=== PATIENT | male | born 1960 | race American Indian/Alaskan Native ===

== ENCOUNTER 2016-07-06 19:50 | Emergency (ER) | payer SELFPAY | END 2016-07-06 20:39 | disposition left against medical advice (07) | LOC: ED 19:50 | DX: M54.5 Low back pain (principal); M25.559 Pain in unspecified hip; Z53.21 Procedure and treatment not carried out due to patient leaving prior to being seen by health care provider ==

== ENCOUNTER 2017-03-24 11:03 | Emergency (ER) | payer SELFPAY ==
[2017-03-24] MEDS ORDERED: NACL 0.9% 1000 ML 1,000 ML IV ONE (11:35)
[2017-03-24] MEDS ORDERED: ZOFRAN IV ONE (11:35)
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
[2017-03-24 12:43] LABS: Hematocrit 42.8 % (35.5-45.6); Hemoglobin 13.8 gm/dl (11.8-15.2); Mean Corpuscular HGB Conc 32 % (32-34); Mean Corpuscular Hemoglobin 30 pg (28-32); Mean Corpuscular Volume 94 fl (84-94); Platelet Count 280 K/mm3 (140-440); Red Blood Count 4.55 M/mm3 (3.65-5.03); Red Cell Distribution Width 15.6 % (13.2-15.2); White Blood Count 8.7 K/mm3 (4.5-11.0)
[2017-03-24 13:03] LABS: Creatine Kinase 160 units/L (55-170)
[2017-03-24] MEDS: DILAUDID IV ONE ×2 (13:04→13:07)
[2017-03-24] MEDS ORDERED: DILAUDID IM ONE (13:08)
[2017-03-24 13:18] LABS: Creatine Kinase MB 3.2 ng/mL (0.0-4.0)
[2017-03-24 13:31] LABS: Alanine Aminotransferase 12 units/L (7-56); Albumin 3.6 g/dL (3.9-5); Albumin/Globulin Ratio 0.9 %; Alkaline Phosphatase 73 units/L (35-129); Anion Gap 21 mmol/L; BUN/Creatinine Ratio 11; Blood Urea Nitrogen 8 mg/dL (9-20); Calcium 9.2 mg/dL (8.4-10.2); Carbon Dioxide 18 mmol/L (22-30); Chloride 102.7 mmol/L (98-107); Glucose 97 mg/dL (75-100); Lipase 19 units/L (13-60); Potassium 4.3 mmol/L (3.6-5.0); Sodium 137 mmol/L (137-145); Total Protein 7.4 g/dL (6.3-8.2)
[2017-03-24 13:37] LABS: Bilirubin,Direct < 0.2 mg/dL (0-0.2); Bilirubin,Indirect 0.2 mg/dL
[2017-03-24 13:38] LABS: INR 1.27 (0.87-1.13)
[2017-03-24 13:39] LABS: Partial Thromboplastin Time 43.4 Sec. (24.2-36.6)
--- NOTE | 2017-03-24 14:17 | Cat Scan Report ---
CT CHEST WITHOUT CONTRAST: HISTORY: Chest pain, right costal pain. TECHNIQUE: Helical CT with sagittal and coronal reformatted images. FINDINGS: Heart size is normal. There is no evidence of adenopathy within the mediastinum. Pulmonary lulu are free of any mass and the lungs are clear of infiltrates. The pleura is unremarkable. No masses involve the chest wall. No evidence for thoracic fracture or bony lesion. IMPRESSION: Unremarkable noncontrast CT chest.
--- NOTE | 2017-03-24 14:19 | Cat Scan Report ---
CT OF THE ABDOMEN AND PELVIS WITHOUT CONTRAST HISTORY: Abdominal pain. TECHNIQUE: Helical CT without contrast. Sagittal and coronal reformatted images. FINDINGS: Within the limits of a noncontrast exam, the abdominal and pelvic viscera are within normal limits. The liver, biliary system, pancreas, spleen, kidneys, adrenal glands and bladder are unremarkable. The bowel loops are normal caliber and wall thickness. The appendix is not confidently identified. The aorta is normal caliber. No ascites, bulky adenopathy or inflammatory changes. A small supraumbilical ventral wall defect measuring 1 cm contains a small amount of fat. The lung bases are clear. Normal heart size. No suspicious bony lesion. IMPRESSION: No acute inflammatory process is identified in the abdomen or pelvis.
--- NOTE | 2017-03-24 14:31 | XRay Report ---
AP CHEST: History: Chest pain. AP view of the chest demonstrates a normal mediastinal and cardiac contour with clear lungs and normal bony and soft tissue structures. IMPRESSION: Normal AP chest.
[2017-03-24 14:48] VITALS: BP 115/77
== END 2017-03-24 14:50 | disposition home or self-care (01) ==
LOC: ED 11:03
DX: S20.212A Contusion of left front wall of thorax, initial encounter (principal); I10 Essential (primary) hypertension; E11.9 Type 2 diabetes mellitus without complications; F31.9 Bipolar disorder, unspecified; F20.9 Schizophrenia, unspecified; F17.200 Nicotine dependence, unspecified, uncomplicated; F14.10 Cocaine abuse, uncomplicated; Z90.49 Acquired absence of other specified parts of digestive tract; Z79.4 Long term (current) use of insulin; Y04.8XXA Assault by other bodily force, initial encounter; Y93.89 Activity, other specified; Y99.8 Other external cause status; Y92.89 Other specified places as the place of occurrence of the external cause
CPT/HCPCS: 36415; 71010; 71250; 74176; 80048; 80074; 82550; 82553; 83690; 83735; 83880; 84484; 85027; 85610; 85730; 86850; 86900; 86901; 93005; 93010; 96372; 99284; J1170

== ENCOUNTER 2019-09-01 18:27 | Emergency (ER) | payer SELFPAY ==
[2019-09-01 18:33] VITALS: BP 158/93
== END 2019-09-01 22:48 | disposition left against medical advice (07) ==
LOC: ED 18:27
DX: M79.604 Pain in right leg (principal); Z53.21 Procedure and treatment not carried out due to patient leaving prior to being seen by health care provider

== ENCOUNTER 2020-02-18 00:50 | Emergency (ER) | payer SELFPAY ==
[2020-02-18 02:07] LABS: Basophils # (Auto) 0.1 K/mm3 (0.0-0.1); Basophils % (Auto) 0.9 % (0.0-1.8); Eosinophils # (Auto) 0.1 K/mm3 (0.0-0.4); Hematocrit 39.9 % (35.5-45.6); Hemoglobin 13.5 gm/dl (11.8-15.2); Lymphocytes % (Auto) 28.2 % (13.4-35.0); Mean Corpuscular HGB Conc 34 % (32-34); Mean Corpuscular Volume 95 fl (84-94); Monocytes # (Auto) 0.7 K/mm3 (0.0-0.8); Monocytes % (Auto) 10.4 % (0.0-7.3); Platelet Count 243 K/mm3 (140-440); Red Blood Count 4.18 M/mm3 (3.65-5.03); Red Cell Distribution Width 13.3 % (13.2-15.2)
[2020-02-18 02:16] LABS: Bilirubin,Urine NEG (Negative); Blood,Urine NEG (Negative); Color,Urine Yellow (Yellow); Mucus,Urine FEW /HPF; RBC,Urine < 1.0 /HPF (0.0-6.0); WBC,Urine < 1.0 /HPF (0.0-6.0)
[2020-02-18 02:18] LABS: Amphetamine Screen,Urine PRESUMPTIVE NEGATIVE; Benzodiazepines Screen,Urine PRESUMPTIVE NEGATIVE; Cannabinoid Screen,Urine PRESUMPTIVE NEGATIVE; Cocaine Screen,Urine PRESUMPTIVE POSITIVE; Methadone Screen,Urine PRESUMPTIVE NEGATIVE; Opiate Screen,Urine PRESUMPTIVE NEGATIVE
[2020-02-18 02:22] LABS: Blood Urea Nitrogen 9 mg/dL (9-20); Calcium 9.2 mg/dL (8.4-10.2); Hemolysis Index 10
[2020-02-18 02:23] LABS: Protein,Urine >500 mg/dL (Negative)
[2020-02-18 02:23] LABS: BUN/Creatinine Ratio 13
[2020-02-18 02:34] LABS: Alanine Aminotransferase 22 units/L (7-56); Albumin 4.1 g/dL (3.9-5)
[2020-02-18 02:38] LABS: Bilirubin,Direct < 0.2 mg/dL (0-0.2)
--- NOTE | 2020-02-18 02:48 | Emergency Department Report ---
ED Psych HPI - General Chief Complaint: Psych Stated Complaint: MH EVAL/SUICIDAL Time Seen by Provider: 02/18/20 02:01 Source: patient Mode of arrival: Ambulatory - History of Present Illness Initial Comments: Mr. Koch is a 59-year-old male with history of hypertension, diabetes mellitus, schizoaffective, cocaine dependence who presents with suicide attempt. At 9:00 PM patient drank half a bottle of NyQuil in order to harm himself. He walked to the ED for care. He states, "I am just tired. I do not want to live anymore." Last use of cocaine one day ago. Denies fever, headache, chest pain. MD Complaint: suicidal ideation, feels depressed, other (intentional overdose) -: Sudden, This evening Associated Psychiatric Symptoms: depression, suicidal ideation Quality: constant Improves With: none Worsens With: drug use Context: recent drug abuse, not taking psychiatric Associated Symptoms: denies other symptoms If Self Harm: has acted on plan, intentional overdose - Related Data Home Medications Medication Instructions Recorded Confirmed Last Taken Lurasidone (Nf) [Latuda (Nf)] 80 mg PO QDAY 09/23/14 02/19/20 5 Months Ago ~12/05/15 lisinopriL [Lisinopril] 10 mg PO DAILY 11/08/14 02/19/20 5 Months Ago ~12/05/15 Metformin HCl [metFORMIN ER 500 mg PO BID 02/19/20 02/19/20 Unknown Osmotic] Previous Rx's Medication Instructions Recorded Last Taken Type Insulin Glargine [Lantus] 24 unit SUB-Q QHS #30 day 11/08/14 5 Months Ago Rx ~12/05/15 Insulin NPH/Regular [Novolin 70/30] 10 unit SQ BIDDIAB #30 day 11/08/14 5 Months Ago Rx ~12/05/15 Ibuprofen [Motrin 400 MG tab] 400 mg PO Q8H PRN #20 tablet 05/06/16 Unknown Rx traMADoL [Ultram] 50 mg PO Q6HR PRN #10 tablet 03/24/17 02/19/20 Rx Allergies Allergy/AdvReac Type Severity Reaction Status Date / Time No Known Allergies Allergy Verified 08/20/13 05:53 ED Review of Systems ROS: Stated complaint: MH EVAL/SUICIDAL Other details as noted in HPI Comment: All other systems reviewed and negative Constitutional: denies: fever, malaise Respiratory: denies: cough, shortness of breath Cardiovascular: denies: chest pain Psychiatric: depression ED Past Medical Hx - Past Medical History Previous Medical History?: Yes Hx Hypertension: Yes Hx Diabetes: Yes (noncomplaint w/ meds) Hx Psychiatric Treatment: Yes (depression, bipolar/schizophrenia) - Surgical History Past Surgical History?: Yes Hx Appendectomy: Yes Additional Surgical History: exp lap as a child - Social History Smoking Status: Current Every Day Smoker Substance Use Type: Alcohol, Cocaine, Marijuana - Medications Home Medications: Home Medications Medication Instructions Recorded Confirmed Last Taken Type Lurasidone (Nf) [Latuda (Nf)] 80 mg PO QDAY 09/23/14 02/19/20 5 Months Ago History ~12/05/15 Insulin Glargine [Lantus] 24 unit SUB-Q QHS #30 day 11/08/14 02/19/20 5 Months Ago Rx ~12/05/15 Insulin NPH/Regular [Novolin 70/30] 10 unit SQ BIDDIAB #30 day 11/08/14 02/19/20 5 Months Ago Rx ~12/05/15 lisinopriL [Lisinopril] 10 mg PO DAILY 11/08/14 02/19/20 5 Months Ago History ~12/05/15 Ibuprofen [Motrin 400 MG tab] 400 mg PO Q8H PRN #20 tablet 05/06/16 02/19/20 Unknown Rx traMADoL [Ultram] 50 mg PO Q6HR PRN #10 tablet 03/24/17 02/19/20 02/19/20 Rx Metformin HCl [metFORMIN ER 500 mg PO BID 02/19/20 02/19/20 Unknown History Osmotic] ED Physical Exam - General Limitations: No Limitations General appearance: alert, in no apparent distress - Head Head exam: Present: atraumatic, normocephalic - Eye Eye exam: Present: normal appearance - ENT ENT exam: Present: mucous membranes moist - Neck Neck exam: Present: normal inspection, full ROM - Respiratory Respiratory exam: Present: normal lung sounds bilaterally. Absent: respiratory distress, wheezes, rales, rhonchi - Cardiovascular Cardiovascular Exam: Present: regular rate, normal rhythm, normal heart sounds. Absent: systolic murmur, diastolic murmur, rubs, gallop - GI/Abdominal GI/Abdominal exam: Present: soft, normal bowel sounds. Absent: distended, tenderness, guarding, rebound - Rectal Rectal exam: Present: deferred - Extremities Exam Extremities exam: Present: normal inspection - Back Exam Back exam: Present: normal inspection - Neurological Exam Neurological exam: Present: alert, oriented X3 - Psychiatric Psychiatric exam: Present: normal affect, depressed, flat affect, suicidal idea tion - Skin Skin exam: Present: warm, dry, intact, normal color. Absent: rash ED Course Vital Signs 02/18/20 02/18/20 02/18/20 01:19 01:20 08:51 Temperature 98.3 F 98.2 F 98 F Pulse Rate 101 H 76 87 Respiratory 17 18 18 Rate Blood Pressure 131/86 Blood Pressure 140/81 138/96 [Left] O2 Sat by Pulse 97 97 96 Oximetry 02/18/20 02/19/20 02/19/20 19:35 02:06 08:09 Temperature 98.2 F 97.9 F 97.8 F Pulse Rate 88 84 88 Respiratory 16 18 18 Rate Blood Pressure Blood Pressure 120/71 124/77 148/96 [Left] O2 Sat by Pulse 95 98 99 Oximetry 02/19/20 02/19/20 11:40 14:20 Temperature 98.2 F Pulse Rate 88 83 Respiratory 18 Rate Blood Pressure 148/96 Blood Pressure 103/69 [Left] O2 Sat by Pulse 98 Oximetry ED Medical Decision Making - Lab Data Result diagrams: 02/18/20 01:48 02/18/20 01:48 Laboratory Results - last 24 hr 02/18/20 02/18/20 02/18/20 01:37 01:37 01:48 WBC RBC Hgb Hct MCV MCH MCHC RDW Plt Count Lymph % (Auto) [place] % (Auto) Eos % (Auto) Baso % (Auto) Lymph # (Auto) [place] # (Auto) Eos # (Auto) Baso # (Auto) Seg Neutrophils % Seg Neutrophils # Sodium Potassium Chloride Carbon Dioxide Anion Gap BUN Creatinine Estimated GFR BUN/Creatinine Ratio Glucose Calcium Total Bilirubin Direct Bilirubin Indirect Bilirubin AST ALT Alkaline Phosphatase Total Protein Albumin Albumin/Globulin Ratio Urine Color Yellow Urine Turbidity Clear Urine pH 5.0 Ur Specific [place] 1.022 Urine Protein >500 Urine Glucose (UA) 150 Urine Ketones Neg Urine Blood Neg Urine Nitrite Neg Urine Bilirubin Neg Urine Urobilinogen 4.0 Ur Leukocyte Esterase Neg Urine WBC (Auto) < 1.0 Urine RBC (Auto) < 1.0 Urine Mucus Few Salicylates < 0.3 L Urine Opiates Screen Presumptive negative Urine Methadone Screen Presumptive negative Acetaminophen Ur Barbiturates Screen Presumptive negative Ur Phencyclidine Scrn Presumptive negative Ur Amphetamines Screen Presumptive negative U Benzodiazepines Scrn Presumptive negative Urine Cocaine Screen Presumptive positive U Marijuana (THC) Screen Presumptive negative Drugs of Abuse Note Disclamer Plasma/Serum Alcohol 02/18/20 02/18/20 02/18/20 01:48 01:48 01:48 WBC RBC Hgb Hct MCV MCH MCHC RDW Plt Count Lymph % (Auto) [place] % (Auto) Eos % (Auto) Baso % (Auto) Lymph # (Auto) [place] # (Auto) Eos # (Auto) Baso # (Auto) Seg Neutrophils % Seg Neutrophils # Sodium 138 Potassium 4.1 Chloride 103.8 Carbon Dioxide 20 L Anion Gap 18 BUN 9 Creatinine 0.7 L Estimated GFR > 60 BUN/Creatinine Ratio 13 Glucose 134 H Calcium 9.2 Total Bilirubin Direct Bilirubin Indirect Bilirubin AST ALT Alkaline Phosphatase Total Protein Albumin Albumin/Globulin Ratio Urine Color Urine Turbidity Urine pH Ur Specific [place] Urine Protein Urine Glucose (UA) Urine Ketones Urine Blood Urine Nitrite Urine Bilirubin Urine Urobilinogen Ur Leukocyte Esterase Urine WBC (Auto) Urine RBC (Auto) Urine Mucus Salicylates Urine Opiates Screen Urine Methadone Screen Acetaminophen 5.0 L Ur Barbiturates Screen Ur Phencyclidine Scrn Ur Amphetamines Screen U Benzodiazepines Scrn Urine Cocaine Screen U Marijuana (THC) Screen Drugs of Abuse Note Plasma/Serum Alcohol 0.01 02/18/20 02/18/20 01:48 Unknown WBC 7.2 RBC 4.18 Hgb 13.5 Hct 39.9 MCV 95 H MCH 32 MCHC 34 RDW 13.3 Plt Count 243 Lymph % (Auto) 28.2 [place] % (Auto) 10.4 H Eos % (Auto) 2.0 Baso % (Auto) 0.9 Lymph # (Auto) 2.0 [place] # (Auto) 0.7 Eos # (Auto) 0.1 Baso # (Auto) 0.1 Seg Neutrophils % 58.5 Seg Neutrophils # 4.2 Sodium Potassium Chloride Carbon Dioxide Anion Gap BUN Creatinine Estimated GFR BUN/Creatinine Ratio Glucose Calcium Total Bilirubin 0.50 Direct Bilirubin < 0.2 Indirect Bilirubin 0.3 AST 19 ALT 22 Alkaline Phosphatase 97 Total Protein 7.5 Albumin 4.1 Albumin/Globulin Ratio 1.2 Urine Color Urine Turbidity Urine pH Ur Specific [place] Urine Protein Urine Glucose (UA) Urine Ketones Urine Blood Urine Nitrite Urine Bilirubin Urine Urobilinogen Ur Leukocyte Esterase Urine WBC (Auto) Urine RBC (Auto) Urine Mucus Salicylates Urine Opiates Screen Urine Methadone Screen Acetaminophen Ur Barbiturates Screen Ur Phencyclidine Scrn Ur Amphetamines Screen U Benzodiazepines Scrn Urine Cocaine Screen U Marijuana (THC) Screen Drugs of Abuse Note Plasma/Serum Alcohol - EKG Data -: EKG Interpreted by Me EKG shows normal: sinus rhythm, axis, intervals, QRS complexes, ST-T waves Rate: normal - EKG Data Interpretation: normal EKG 02/18/20 02:53 EKG obtained 0140 EKG interpreted by me Normal sinus rhythm normal rate normal axis normal intervals no ST elevation no ST-T signs of ischemia normal EKG - Medical Decision Making Mr. Koch presents with suicide attempt intentional overdose of NyQuil. No evidence of legal toxic effects. 4-hour acetaminophen level normal. CBC chemistry within normal limits. Urinalysis revealed glucosuria and proteinuria without infection. Salicylates negative. Blood alcohol level negative. UDS +cocaine Ms. Koch is medically clear for psychiatric care. Involuntary hold with [address]. Suicide precautions initiated. COVID-19 PCR test ordered in order to facilitate placement to inpatient facility. Awaiting treatment recommendations by our psychiatry team. Patient was accepted in transfer to [facility]. Critical care attestation.: If time is entered above; I have spent that time in minutes in the direct care of this critically ill patient, excluding procedure time. ED Disposition Clinical Impression: Cocaine use disorder, MDD (major depressive disorder) Disposition: [id number] PSY HOSP/PSY UNIT Is pt being admited?: No Does the pt Need Aspirin: No Condition: Stable
--- NOTE | 2020-02-19 09:15 | Consultation ---
History of Present Illness - Reason for Consult Consult date: 02/19/20 Reason for consult: MHE Requesting physician: FRANCIS GERARDO - History of Present Psychiatric Illness Per ED Provider: Mr. Koch is a 59-year-old male with history of hypertension, diabetes mellitus, schizoaffective, cocaine dependence who presents with suicide attempt. At 9:00 PM patient drank half a bottle of NyQuil in order to harm himself. He walked to the ED for care. He states, "I am just tired. I do not want to live anymore." Last use of cocaine one day ago. Denies fever, headache, chest pain. PER MHA: Pt is a 59 y/o AA male who presents to the ED for MHE, after ingesting half a bottle of Nyquil with intent to kill himself. During current ax, pt. presented as being drowsy but cooperative, depressed mood, and flat affect. Pt reports being triggered by life issues to include unemployment, grieving , noncompliance of medical and psych medications, and command hallucinations. Pt reports hearing voices to kill myself. Im not no good and to be cremated with my . Pt admits to command hallucinations prior to consuming Nyquil. Onset of voices began two weeks ago. Pt has a hx of Schizophrenia, Bipolar Disorder, and Depression. Pt denies been compliant with medications in approximately 2 or 3 years. Denies psychiatrist or primary care physician currently. Pt has received psychiatric treatment at [facility] related to Schizophrenia about 4 years ago. Pt has had a previous suicide attempt via overdosing on pain medications. Pt. reports hx of cutting arms with knives but unknown last time. Pt. admits to alcohol and crack cocaine use. Alcohol onset is 15 and drinks three times weekly in the amount of 6 pack of 24once beers. He endorses crack cocaine use and spending $100 daily. Per medical records, hx of marijuana use. Pt tested positive for Cocaine. Reports living with a friend Mr. Delarosa at [address] [place] [address] and able to return after treatment. Pt. reports that his support system consists of his father, Ez Koch [phone]. Pt. reports being arrested 2 months ago for loitering. Pt receives 900.00 monthly in spousal support. PSYCH HPI Patient is a unemployed, with children and homeless [place] male with past psychiatric history of bipolar schizophrenia and significant past medical history of diabetes and hypertension who presents to the ED with report of suicidal ideation plan to overdose on NyQuil. Patient reported he had picked up NyQuil from over the shelf that he took before walking to the ER for mental health evaluation for suicidal thoughts. Patient reported missing his 4 years ago and also reported barely been able to communicate with his kids whom he had not spoken to in 2 years. Patient contributing factors of depression to lack of progress in life to eat he gets Cristal dollars monthly for disability but usually spends most of his on drugs around himself Taking his medication when he started feeling fine thinking he does not need anymore and then he starts having mental health issues. PAST PSYCHIATRIC HISTORY Diagnoses:bipolar schizophrenia Suicide attempts or Self-harm behavior: Yes Prior psychiatric hospitalizations: Yes Substance Abuse history: Crack cocaine Previous psychiatric medications tried:yes Outpatient treatment:none PAST MEDICAL HISTORY:diabetes and hypertension Family Psychiatric History: None reported or documented SOCIAL HISTORY Marital Status: Living Arrangements: Homeless Employment Status: Unemployed currently on disability Access to guns/weapons: None reported Education: High school History of Abuse: None reported Legal History: Yes most recently REVIEW OF SYSTEMS Constitutional: Negative for weight loss ENT: Negative for stridor Respiratory: Negative for cough or hemoptysis All other systems reviewed and are negative MENTAL STATUS EXAMINATION General Appearance and Behavior: Age appropriate, poor/fair/good hygiene, wear ing appropriate clothes, lying in bed, good/poor eye contact, cooperative/uncooperative polite/irritable with questioning. Cooperation: Participating/engaged, Withdrawn, Isolative, Threatening, Bowen ative, Hostile and Guarded Psychomotor Behavior: Psychomotor agitation, psychomotor retardation, unr emarkable and within normal limits Mood: Good, OK, Anxious, Depressed, Great, I don't know and so-so Affect and affective range: Angry, anxious, constricted, decreased range, depressed, dysthymic, euphoric, euthymic, irritable, labile and sad Thought Process: Fluent/Logical, Tangential, Circumstantial, Perseverative, Illogical, Goal-directed, Rambling, Pressured, Blocked, Fragmented and Loose associations Thought Content: Illogical Speech: Normal volume, Regular rate and rhythm Intellectual Functioning: Average Suicidal Ideation: Suicidal Homicidal Ideation: Denies HI Impulse Control: Impaired Insight and Judgment: Limited insight and judgment Memory: Che Attention: Normal Orientation: Alert, oriented Treatment Plan Assessment and Plan - Psychiatric problem (1) MDD (major depressive disorder) Current Visit: Yes Status: Acute (2) Cocaine use disorder Current Visit: Yes Status: Acute MEDICATIONS: Zoloft started. Risks, benefits and alternatives of medications discussed with the patient, questions answered and consent obtained from patient. PSYCHOTHERAPY: Supportive psychotherapy provided MEDICAL: Per primary team DELIRIUM PRECAUTIONS: Please re-orient patient frequently, keep lights on during the day, and minimize benzodiazepines and opiates as these medications could worsen patient's confusion. 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 Please contact with any questions and/or concerns. Medications and Allergies Allergies Allergy/AdvReac Type Severity Reaction Status Date / Time No Known Allergies Allergy Verified 08/20/13 05:53 Home Medications Medication Instructions Recorded Confirmed Last Taken Type Lurasidone (Nf) [Latuda (Nf)] 80 mg PO QDAY 09/23/14 02/19/20 5 Months Ago History ~12/05/15 Insulin Glargine [Lantus] 24 unit SUB-Q QHS #30 day 11/08/14 02/19/20 5 Months Ago Rx ~12/05/15 Insulin NPH/Regular [Novolin 70/30] 10 unit SQ BIDDIAB #30 day 11/08/14 02/19/20 5 Months Ago Rx ~12/05/15 lisinopriL [Lisinopril] 10 mg PO DAILY 11/08/14 02/19/20 5 Months Ago History ~12/05/15 Ibuprofen [Motrin 400 MG tab] 400 mg PO Q8H PRN #20 tablet 05/06/16 02/19/20 Unknown Rx traMADoL [Ultram] 50 mg PO Q6HR PRN #10 tablet 03/24/17 02/19/20 02/19/20 Rx Metformin HCl [metFORMIN ER 500 mg PO BID 02/19/20 02/19/20 Unknown History Osmotic] Mental Status Exam - Vital signs Last Vital Signs Temp 97.8 F 02/19/20 08:09 Pulse 88 02/19/20 08:09 Resp 18 02/19/20 08:09 BP 148/96 02/19/20 08:09 Pulse Ox 99 02/19/20 08:09 Results Result Diagrams: 02/18/20 01:48 02/18/20 01:48 All other labs normal. Assessment and Plan - Psychiatric problem (1) MDD (major depressive disorder) Current Visit: Yes Status: Acute (2) Cocaine use disorder Current Visit: Yes Status: Acute
[2020-02-19] MEDS ORDERED: LISINOPRIL 10 MG TAB PO ONE (11:36)
[2020-02-19] MEDS ORDERED: metFORMIN 500 MG TAB PO ONE (11:37)
[2020-02-19] MEDS ORDERED: SERTRALINE 50 MG TAB PO SCH (12:00)
[2020-02-19 14:20] VITALS: BP 103/69
== END 2020-02-19 16:10 ==
LOC: ED 00:50
DX: F25.1 Schizoaffective disorder, depressive type (principal); F14.20 Cocaine dependence, uncomplicated; I10 Essential (primary) hypertension; E11.9 Type 2 diabetes mellitus without complications; F25.9 Schizoaffective disorder, unspecified; F25.0 Schizoaffective disorder, bipolar type; F17.200 Nicotine dependence, unspecified, uncomplicated; F12.90 Cannabis use, unspecified, uncomplicated; Z90.49 Acquired absence of other specified parts of digestive tract; Z79.899 Other long term (current) drug therapy
CPT/HCPCS: 36415; 80048; 80076; 80307; 80320; 81001; 82962; 85025; 93005; G0480

== ENCOUNTER 2020-05-22 04:45 | Emergency (ER) | payer SELFPAY ==
--- NOTE | 2020-05-22 04:58 | Emergency Department Report ---
ED General Adult HPI - General Stated complaint: RT KNEE PAIN Time Seen by Provider: 05/22/20 04:49 - History of Present Illness Initial comments: 59-year-old -Aust[place] male with asthma department complaining of atraumatic left knee pain that woke him up out of sleep but has been present for the past few weeks of an unknown etiology reports no pain no significant work related history. Ports no fever, chills, sweats. No nausea, no vomiting, no numbness, no tingling. -: Gradual Radiation: non-radiation Quality: aching Consistency: constant Improves with: none Worsens with: none Associated Symptoms: denies: chest pain, cough, diaphoresis, loss of appetite, malaise, nausea/vomiting - Related Data Home Medications Medication Instructions Recorded Confirmed Last Taken Lurasidone (Nf) [Latuda (Nf)] 80 mg PO QDAY 09/23/14 02/19/20 5 Months Ago ~12/05/15 lisinopriL [Lisinopril] 10 mg PO DAILY 11/08/14 02/19/20 5 Months Ago ~12/05/15 Metformin HCl [metFORMIN ER 500 mg PO BID 02/19/20 02/19/20 Unknown Osmotic] Previous Rx's Medication Instructions Recorded Last Taken Type Insulin Glargine [Lantus] 24 unit SUB-Q QHS #30 day 11/08/14 5 Months Ago Rx ~12/05/15 Insulin NPH/Regular [Novolin 70/30] 10 unit SQ BIDDIAB #30 day 11/08/14 5 Months Ago Rx ~12/05/15 Ibuprofen [Motrin 400 MG tab] 400 mg PO Q8H PRN #20 tablet 05/06/16 Unknown Rx traMADoL [Ultram] 50 mg PO Q6HR PRN #10 tablet 03/24/17 02/19/20 Rx Ketorolac [Toradol] 10 mg PO Q8H PRN #12 tablet 05/22/20 Unknown Rx Allergies Allergy/AdvReac Type Severity Reaction Status Date / Time No Known Allergies Allergy Verified 08/20/13 05:53 ED Review of Systems ROS: Stated complaint: RT KNEE PAIN Other details as noted in HPI Comment: All other systems reviewed and negative ED Past Medical Hx - Past Medical History Hx Hypertension: Yes Hx Diabetes: Yes (noncomplaint w/ meds) Hx Psychiatric Treatment: Yes (depression, bipolar/schizophrenia) - Surgical History Hx Appendectomy: Yes Additional Surgical History: exp lap as a child - Social History Smoking Status: Current Every Day Smoker Substance Use Type: Alcohol, Cocaine, Marijuana - Medications Home Medications: Home Medications Medication Instructions Recorded Confirmed Last Taken Type Lurasidone (Nf) [Latuda (Nf)] 80 mg PO QDAY 09/23/14 02/19/20 5 Months Ago History ~12/05/15 Insulin Glargine [Lantus] 24 unit SUB-Q QHS #30 day 11/08/14 02/19/20 5 Months Ago Rx ~12/05/15 Insulin NPH/Regular [Novolin 70/30] 10 unit SQ BIDDIAB #30 day 11/08/14 02/19/20 5 Months Ago Rx ~12/05/15 lisinopriL [Lisinopril] 10 mg PO DAILY 11/08/14 02/19/20 5 Months Ago History ~12/05/15 Ibuprofen [Motrin 400 MG tab] 400 mg PO Q8H PRN #20 tablet 05/06/16 02/19/20 Unknown Rx traMADoL [Ultram] 50 mg PO Q6HR PRN #10 tablet 03/24/17 02/19/20 02/19/20 Rx Metformin HCl [metFORMIN ER 500 mg PO BID 02/19/20 02/19/20 Unknown History Osmotic] Ketorolac [Toradol] 10 mg PO Q8H PRN #12 tablet 05/22/20 Unknown Rx ED Physical Exam - General General appearance: alert, in no apparent distress - Head Head exam: Present: atraumatic, normocephalic - Eye Eye exam: Present: normal appearance - ENT ENT exam: Present: mucous membranes moist - Neck Neck exam: Present: normal inspection - Respiratory Respiratory exam: Present: normal lung sounds bilaterally. Absent: respiratory distress - Cardiovascular Cardiovascular Exam: Present: regular rate, normal rhythm. Absent: systolic murmur, diastolic murmur, rubs, gallop - GI/Abdominal GI/Abdominal exam: Present: soft, normal bowel sounds - Rectal Rectal exam: Present: deferred - Extremities Exam Extremities exam: Present: normal inspection, tenderness, normal capillary refill, other (No popliteal mass. Normal varus and valgus. Drawer test is negative. There is some crepitus with with flexion and extension minimal swelling no erythema). Absent: calf tenderness - Back Exam Back exam: Present: normal inspection - Neurological Exam Neurological exam: Present: alert, oriented X3 - Psychiatric Psychiatric exam: Present: normal affect, normal mood - Skin Skin exam: Present: warm, dry, intact, normal color. Absent: rash Critical care attestation.: If time is entered above; I have spent that time in minutes in the direct care of this critically ill patient, excluding procedure time. ED Disposition Clinical Impression: Left knee pain Disposition: DC- TO HOME OR SELFCARE Is pt being admited?: No Does the pt Need Aspirin: No Condition: Stable Instructions: Chronic Knee Pain, Adult, [id number], Musculoskeletal Pain, Patellofemoral Pain Syndrome Prescriptions: Ketorolac [Toradol] 10 mg PO Q8H PRN #12 tablet PRN Reason: Pain Referrals: NILE ZAMORA MD [Staff Physician] - 3-5 Days
[2020-05-22 04:59] VITALS: BP 146/94
== END 2020-05-22 05:36 | disposition home or self-care (01) ==
LOC: ED 04:45
DX: M25.562 Pain in left knee (principal); I10 Essential (primary) hypertension; E11.9 Type 2 diabetes mellitus without complications; F32.9 Major depressive disorder, single episode, unspecified; F17.200 Nicotine dependence, unspecified, uncomplicated; F12.10 Cannabis abuse, uncomplicated; Z79.4 Long term (current) use of insulin; Z90.49 Acquired absence of other specified parts of digestive tract; Z79.899 Other long term (current) drug therapy
CPT/HCPCS: 99282

== ENCOUNTER 2021-04-04 23:21 | Inpatient (IN) | payer SELFPAY ==
[2021-04-04] MEDS ORDERED: ASPIRIN 325 MG TAB PO ONE (23:43)
[2021-04-04] MEDS ORDERED: fentaNYL 100 MCG/2 ML INJ IV ONE (23:43)
[2021-04-04] MEDS ORDERED: ONDANSETRON 4 MG/2 ML INJ IV ONE (23:43)
[2021-04-04] MEDS ORDERED: NITROGLYCERIN 2% OINT 1 GM TP ONE (23:43)
--- NOTE | 2021-04-04 23:50 | Emergency Department Report ---
HPI - General Chief Complaint: Chest Pain Time Seen by Provider: 04/04/21 23:33 - HPI HPI: Room 5 The patient is a 60-year-old male present with a chief complaint of chest pain. Patient states he has had constant left-sided chest pain since yesterday d escribed as dull in nature. Patient admits to shortness of breath and diaphoresis associated with this chest pain. Patient denies nausea or vomiting. Patient denies any recent flights or long car trips. Patient denies history of cough or fever. Patient states he received only one of his Covid vaccinations in September 2020. Patient currently gets his chest pain score of 10/10. Patient states a pack of cigarettes last him 1 week he occasionally uses crack cocaine last used yesterday. Patient states he's never had a stress test or cardiac catheterization ED Past Medical Hx - Past Medical History Hx Hypertension: Yes Hx Diabetes: Yes (noncomplaint w/ meds) Hx Psychiatric Treatment: Yes (depression, bipolar/schizophrenia) Additional medical history: Chronic Knee Pain - Surgical History Hx Appendectomy: Yes Additional Surgical History: exp lap as a child - Family History Family history: no significant - Social History Smoking Status: Current Every Day Smoker (1/7 pack/day) Substance Use Type: Alcohol (Frequently), Cocaine (Cracked last used yesterday) - Medications Home Medications: Home Medications Medication Instructions Recorded Confirmed Last Taken Type Lurasidone (Nf) [Latuda (Nf)] 80 mg PO QDAY 09/23/14 02/19/20 5 Months Ago History ~12/05/15 Insulin Glargine [Lantus] 24 unit SUB-Q QHS #30 day 11/08/14 02/19/20 5 Months Ago Rx ~12/05/15 Insulin NPH/Regular [Novolin 70/30] 10 unit SQ BIDDIAB #30 day 11/08/14 02/19/20 5 Months Ago Rx ~12/05/15 lisinopriL [Lisinopril] 10 mg PO DAILY 11/08/14 02/19/20 5 Months Ago History ~12/05/15 Ibuprofen [Motrin 400 MG tab] 400 mg PO Q8H PRN #20 tablet 05/06/16 02/19/20 Unknown Rx traMADoL [Ultram] 50 mg PO Q6HR PRN #10 tablet 1102/19/20 02/19/20 Rx Metformin HCl [metFORMIN ER 500 mg PO BID 02/19/20 02/19/20 Unknown History Osmotic] Ketorolac [Toradol] 10 mg PO Q8H PRN #12 tablet 05/22/20 Unknown Rx ED Review of Systems ROS: Stated complaint: CHEST PAIN Other details as noted in HPI Constitutional: diaphoresis. denies: fever Eyes: denies: eye pain ENT: denies: throat pain Respiratory: shortness of breath Cardiovascular: chest pain Endocrine: no symptoms reported Gastrointestinal: denies: nausea, vomiting Genitourinary: denies: dysuria Musculoskeletal: denies: back pain Neurological: denies: headache Physical Exam - Physical Exam Vital Signs: Vital Signs 04/04/21 23:30 Temperature 98.0 F Pulse Rate 111 H Respiratory 16 Rate Blood Pressure 147/82 [Left] O2 Sat by Pulse 99 Oximetry Physical Exam: GENERAL: The patient is well-developed well-nourished male lying on stretcher not appearing to be in acute distress. [] HEENT: Normocephalic. Atraumatic. Extraocular motions are intact. Patient has moist mucous membranes. NECK: Supple. Trachea midline CHEST/LUNGS: Clear to auscultation. There is no respiratory distress noted. HEART/CARDIOVASCULAR: Regular. There is no tachycardia. There is no gallop rub or murmur. ABDOMEN: Abdomen is soft, nontender. Patient has normal bowel sounds. There is no abdominal distention. SKIN: There is chronic appearing skin changes overlying bilateral lower extremity. There is no edema. There is no diaphoresis. NEURO: The patient is awake, alert, and oriented. The patient is cooperative. The patient has no focal neurologic deficits. The patient has normal speech. GCS 15 MUSCULOSKELETAL: There is no evidence of acute injury. ED Course Vital Signs 04/04/21 23:30 Temperature 98.0 F Pulse Rate 111 H Respiratory 16 Rate Blood Pressure 147/82 [Left] O2 Sat by Pulse 99 Oximetry ED Medical Decision Making - Lab Data Result diagrams: 04/05/21 00:35 04/05/21 00:35 Laboratory Tests 04/05/21 04/05/21 04/05/21 00:35 00:35 00:35 WBC 10.5 RBC 4.20 Hgb 13.0 Hct 38.7 MCV 92 MCH 31 MCHC 34 RDW 13.6 Plt Count 326 Lymph % (Auto) 8.7 L [place] % (Auto) 9.7 H Eos % (Auto) 0.8 Baso % (Auto) 0.5 Lymph # (Auto) 0.9 L [place] # (Auto) 1.0 H Eos # (Auto) 0.1 Baso # (Auto) 0.1 Seg Neutrophils % 80.3 H Seg Neutrophils # 8.5 H PT 13.0 INR 0.88 Sodium 135 L Potassium 4.0 Chloride 103.3 Carbon Dioxide 23 Anion Gap 13 BUN 13 Creatinine 0.9 Estimated GFR > 60 BUN/Creatinine Ratio 14 Glucose 208 H Calcium 9.1 Magnesium Total Creatine Kinase 160 CK-MB (CK-2) 2.5 CK-MB (CK-2) Rel Index 1.5 Troponin T < 0.010 NT-Pro-B Natriuret Pep 113.8 Plasma/Serum Alcohol 04/05/21 04/05/21 00:35 00:35 WBC RBC Hgb Hct MCV MCH MCHC RDW Plt Count Lymph % (Auto) [place] % (Auto) Eos % (Auto) Baso % (Auto) Lymph # (Auto) [place] # (Auto) Eos # (Auto) Baso # (Auto) Seg Neutrophils % Seg Neutrophils # PT INR Sodium Potassium Chloride Carbon Dioxide Anion Gap BUN Creatinine Estimated GFR BUN/Creatinine Ratio Glucose Calcium Magnesium 2.10 Total Creatine Kinase CK-MB (CK-2) CK-MB (CK-2) Rel Index Troponin T NT-Pro-B Natriuret Pep Plasma/Serum Alcohol < 0.01 - EKG Data -: EKG Interpreted by Me EKG shows normal: sinus rhythm, axis Rate: tachycardia (104 bpm) - EKG Data When compared to previous EKG there are: previous EKG unavailable Interpretation: nonspecific ST-T wave willian (Biphasic T waves in lead aVL) - Differential Diagnosis ACS, pericarditis, GERD Critical care attestation.: If time is entered above; I have spent that time in minutes in the direct care of this critically ill patient, excluding procedure time. ED Disposition Clinical Impression: Chest pain, Cocaine use disorder Disposition: ADMITTED INPATIENT Is pt being admited?: Yes Does the pt Need Aspirin: Yes Condition: Fair Instructions: Nonspecific Chest Pain, Adult Time of Disposition: 01:50 (Hospitalist called (Dr. De La Cruz)) Heart Score - HEART Score History: Moderately suspicious EKG: Non-specific Age: 45-65 Risk factors: > 3 risk factors or hx of atherosclerotic disease Troponin: < normal limit HEART Score: 5 - EKG Read Time Time EKG Completed: 23:51 EKG Read Time: 00:11
--- NOTE | 2021-04-05 00:03 | XRay Report ---
XR chest 1V ap INDICATION / CLINICAL INFORMATION: chest pain. COMPARISON: None available. FINDINGS: SUPPORT DEVICES: None. HEART /PULMONARY VASCULATURE: Cardiac silhouette is accentuated by low lung volumes. No significant p ulmonary vasculature congestion. LUNGS / PLEURA: No significant pulmonary or pleural abnormality. No pneumothorax. ADDITIONAL FINDINGS: No significant additional findings. IMPRESSION: 1. No acute findings. Signer Name: King Herman MD Signed: 04/04/2021 11:59 PM Workstation Name: [id number]
[2021-04-05 00:49] LABS: Basophils # (Auto) 0.1 K/mm3 (0.0-0.1); Basophils % (Auto) 0.5 % (0.0-1.8); Eosinophils # (Auto) 0.1 K/mm3 (0.0-0.4); Eosinophils % (Auto) 0.8 % (0.0-4.3); Hematocrit 38.7 % (35.5-45.6); Lymphocytes # (Auto) 0.9 K/mm3 (1.2-5.4); Lymphocytes % (Auto) 8.7 % (13.4-35.0); Mean Corpuscular HGB Conc 34 % (32-34); Mean Corpuscular Volume 92 fl (84-94); Monocytes % (Auto) 9.7 % (0.0-7.3); Platelet Count 326 K/mm3 (140-440); Red Cell Distribution Width 13.6 % (13.2-15.2)
[2021-04-05 01:01] LABS: INR 0.88 (0.87-1.13)
[2021-04-05 01:13] LABS: Creatine Kinase MB 2.5 ng/mL (0.0-4.0)
[2021-04-05 01:15] LABS: BUN/Creatinine Ratio 14; Blood Urea Nitrogen 13 mg/dL (9-20); Calcium 9.1 mg/dL (8.4-10.2); Hemolysis Index 4
[2021-04-05 04:21] LABS: Amphetamine Screen,Urine Negative; Benzodiazepines Screen,Urine Negative; Cannabinoid Screen,Urine Negative; Methadone Screen,Urine Negative; Opiate Screen,Urine Negative
[2021-04-05 04:34] LABS: Cocaine Screen,Urine Positive
[2021-04-05] MEDS ORDERED: DEXTROSE 50% IN WATER (25GM) 50 ML SYRINGE IV PRN (04:58)
[2021-04-05] MEDS ORDERED: traMADol 50 MG TAB PO PRN (04:58)
[2021-04-05] MEDS ORDERED: NITROGLYCERIN 0.4 MG TAB SUBL SL PRN (04:58)
[2021-04-05] MEDS ORDERED: ACETAMINOPHEN 325 MG TAB PO PRN (04:58)
[2021-04-05] MEDS ORDERED: KETOROLAC 10 MG TAB PO PRN (05:01)
--- NOTE | 2021-04-05 05:18 | History and Physical Report ---
History of Present Illness Date of examination: 04/05/21 Date of admission: 04/05/21 03:45 Chief complaint: Chest pain History of present illness: 60-year-old male with history of diabetes and high blood pressure was brought to the hospital because of constant left-sided chest pain 10/10 since yesterday described as dull in nature. Patient admits to shortness of breath and diaphoresis associated with this chest pain. Patient denies nausea or vomiting. Patient denies any recent flights or long car trips. Patient denies history of cough or fever. Patient states he received only one of his Covid vaccinations in September 2020. Patient currently gets his chest pain score of 10/10. Patient states a pack of cigarettes last him 1 week he occasionally uses crack cocaine last used yesterday. Patient states he's never had a stress test or cardiac catheterization In the emergency room initial cardiac enzyme is negative troponin is 0.010, patient urine drug screen is positive for cocaine.'s were going to admit the patient. We will put the patient on chest pain pathway. Will consult cardiology for evaluation Past History Past Medical History: diabetes, hypertension, other Medications and Allergies Allergies Allergy/AdvReac Type Severity Reaction Status Date / Time No Known Allergies Allergy Verified 04/04/21 23:31 Home Medications Medication Instructions Recorded Confirmed Last Taken Type Lurasidone (Nf) [Latuda (Nf)] 80 mg PO QDAY 09/23/14 02/19/20 5 Months Ago History ~12/05/15 Insulin Glargine [Lantus] 24 unit SUB-Q QHS #30 day 11/08/14 02/19/20 5 Months Ago Rx ~12/05/15 Insulin NPH/Regular [Novolin 70/30] 10 unit SQ BIDDIAB #30 day 11/08/14 02/19/20 5 Months Ago Rx ~12/05/15 lisinopriL [Lisinopril] 10 mg PO DAILY 11/08/14 02/19/20 5 Months Ago History ~12/05/15 Ibuprofen [Motrin 400 MG tab] 400 mg PO Q8H PRN #20 tablet 05/06/16 02/19/20 Unknown Rx traMADoL [Ultram] 50 mg PO Q6HR PRN #10 tablet 03/24/17 02/19/20 02/19/20 Rx Metformin HCl [metFORMIN ER 500 mg PO BID 02/19/20 02/19/20 Unknown History Osmotic] Ketorolac [Toradol] 10 mg PO Q8H PRN #12 tablet 05/22/20 Unknown Rx Active Meds: Active Medications Acetaminophen (Acetaminophen 325 Mg Tab) 650 mg PO Q6H PRN PRN Reason: Pain, Mild (1-3) Aspirin (Aspirin Ec 325 Mg Tab) 325 mg PO QDAY [facility] Atorvastatin Calcium (Atorvastatin 40 Mg Tab) 40 mg PO QHS [facility] Dextrose (Dextrose 50% In Water (25gm) 50 Ml Syringe) 50 ml IV Q30MIN PRN; Protocol PRN Reason: Hypoglycemia Heparin Sodium (Porcine) (Heparin 5,000 Unit/1 Ml Vial) 5,000 unit SUB-Q Q8HR [facility] Sodium Chloride (Nacl 0.9% 1000 Ml) 1,000 mls @ 100 mls/hr IV DIRECT [facility] Insulin Human Lispro (Insulin Lispro 100 Unit/Ml) 0 unit SUB-Q Q6HR [facility]; Protocol Ketorolac Tromethamine (Ketorolac 10 Mg Tab) 10 mg PO Q8H PRN PRN Reason: Pain, Moderate (4-6) Stop: 04/10/21 05:00 Lisinopril (Lisinopril 10 Mg Tab) 10 mg PO DAILY [facility] Miscellaneous Medication (Lurasidone (Nf)) 80 mg PO QDAY [facility] Morphine Sulfate (Morphine 4 Mg/1 Ml Inj) 2 mg IV Q5MIN PRN PRN Reason: Chest Pain unrelieved by NTG Nitroglycerin (Nitroglycerin 0.4 Mg Tab Subl) 0.4 mg SL Q5M PRN PRN Reason: Chest Pain Pantoprazole Sodium (Pantoprazole 40 Mg Tab) 40 mg PO QDAY [facility] Sodium Chloride (Sodium Chloride 0.9% 10 Ml Flush Syringe) 10 ml IV PRN PRN PRN Reason: LINE FLUSH Tramadol HCl (Tramadol 50 Mg Tab) 50 mg PO Q6H PRN PRN Reason: Pain, Moderate (4-6) Review of Systems All systems: negative Cardiovascular: chest pain, shortness of breath, dyspnea on exertion Respiratory: shortness of breath, dyspnea on exertion Exam - Constitutional Vitals: Temp Pulse Resp BP Pulse Ox 98.0 F 109 H 19 140/69 97 04/04/21 23:30 04/05/21 03:31 04/05/21 03:31 04/05/21 03:31 04/05/21 03:31 General appearance: Present: no acute distress, well-nourished - EENT Eyes: Present: PERRL ENT: hearing intact, clear oral mucosa - Neck Neck: Present: supple, normal ROM - Respiratory Respiratory effort: normal Respiratory: bilateral: diminished - Cardiovascular Heart Sounds: Present: S1 & S2. Absent: rub, click - Extremities Extremities: pulses symmetrical, No edema Peripheral Pulses: within normal limits - Abdominal General gastrointestinal: Present: soft, non-tender, non-distended, normal bowel sounds Male genitourinary: Present: normal - Integumentary Integumentary: Present: clear, warm, dry - Musculoskeletal Musculoskeletal: gait normal, strength equal bilaterally - Psychiatric Psychiatric: appropriate mood/affect, intact judgment & insight - Neurologic Neurologic: CNII-XII intact, moves all extremities HEART Score - HEART Score EKG: Non-specific Age: 45-65 Risk factors: > 3 risk factors or hx of atherosclerotic disease Troponin: Troponin T < 0.010 ng/mL (0.00-0.029) 04/05/21 00:35 Troponin: < normal limit Results - Labs CBC & Chem 7: 04/05/21 00:35 04/05/21 00:35 Labs: Laboratory Last Values WBC 10.5 K/mm3 (4.5-11.0) 04/05/21 00:35 RBC 4.20 M/mm3 (3.65-5.03) 04/05/21 00:35 Hgb 13.0 gm/dl (11.8-15.2) 04/05/21 00:35 Hct 38.7 % (35.5-45.6) 04/05/21 00:35 MCV 92 fl (84-94) 04/05/21 00:35 MCH 31 pg (28-32) 04/05/21 00:35 MCHC 34 % (32-34) 04/05/21 00:35 RDW 13.6 % (13.2-15.2) 04/05/21 00:35 Plt Count 326 K/mm3 (140-440) 04/05/21 00:35 Lymph % (Auto) 8.7 % (13.4-35.0) L 04/05/21 00:35 [place] % (Auto) 9.7 % (0.0-7.3) H 04/05/21 00:35 Eos % (Auto) 0.8 % (0.0-4.3) 04/05/21 00:35 Baso % (Auto) 0.5 % (0.0-1.8) 04/05/21 00:35 Lymph # (Auto) 0.9 K/mm3 (1.2-5.4) L 04/05/21 00:35 [place] # (Auto) 1.0 K/mm3 (0.0-0.8) H 04/05/21 00:35 Eos # (Auto) 0.1 K/mm3 (0.0-0.4) 04/05/21 00:35 Baso # (Auto) 0.1 K/mm3 (0.0-0.1) 04/05/21 00:35 Seg Neutrophils % 80.3 % (40.0-70.0) H 04/05/21 00:35 Seg Neutrophils # 8.5 K/mm3 (1.8-7.7) H 04/05/21 00:35 PT 13.0 Sec. (12.2-14.9) 04/05/21 00:35 INR 0.88 (0.87-1.13) 04/05/21 00:35 Sodium 135 mmol/L (137-145) L 04/05/21 00:35 Potassium 4.0 mmol/L (3.6-5.0) 04/05/21 00:35 Chloride 103.3 mmol/L (98-107) 04/05/21 00:35 Carbon Dioxide 23 mmol/L (22-30) 04/05/21 00:35 Anion Gap 13 mmol/L 04/05/21 00:35 BUN 13 mg/dL (9-20) 04/05/21 00:35 Creatinine 0.9 mg/dL (0.8-1.3) 04/05/21 00:35 Estimated GFR > 60 ml/min 04/05/21 00:35 BUN/Creatinine Ratio 14 % 04/05/21 00:35 Glucose 208 mg/dL (75-100) H 04/05/21 00:35 Calcium 9.1 mg/dL (8.4-10.2) 04/05/21 00:35 Magnesium 2.10 mg/dL (1.7-2.3) 04/05/21 00:35 Total Creatine Kinase 160 units/L (55-170) 04/05/21 00:35 CK-MB (CK-2) 2.5 ng/mL (0.0-4.0) 04/05/21 00:35 CK-MB (CK-2) Rel Index 1.5 (0-4) 04/05/21 00:35 Troponin T < 0.010 ng/mL (0.00-0.029) 04/05/21 00:35 NT-Pro-B Natriuret Pep 113.8 pg/mL (0-900) 04/05/21 00:35 Urine Opiates Screen Negative 04/05/21 04:03 Urine Methadone Screen Negative 04/05/21 04:03 Ur Barbiturates Screen Negative 04/05/21 04:03 Ur Phencyclidine Scrn Negative 04/05/21 04:03 Ur Amphetamines Screen Negative 04/05/21 04:03 U Benzodiazepines Scrn Negative 04/05/21 04:03 Urine Cocaine Screen Positive 04/05/21 04:03 U Marijuana (THC) Screen Negative 04/05/21 04:03 Drugs of Abuse Note Disclamer 04/05/21 04:03 Plasma/Serum Alcohol < 0.01 % (0-0.07) 04/05/21 00:35 - Imaging and Cardiology Chest x-ray: report reviewed Assessment and Plan VTE prophylaxis?: Chemical Plan of care discussed with patient/family: Yes - Patient Problems (1) Acute coronary syndrome Current Visit: Yes Status: Acute Plan to address problem: Admit the patient to the medical telemetry. Oxygen by nasal cannula 3 L/min. aspirin 325 mg p.o. daily. Lipitor 40 mg p.o. daily. Nitropatch. Morphine 2 mg IV every 4 hours as needed. Serial cardiac enzyme. Echocardiogram. Cardiology evaluation (2) Hypertension Current Visit: No Status: Chronic Plan to address problem: Hydralazine 10 mg IV every 6 hours as needed. We will monitor the blood pressure closely. We will continue the home medication (3) Diabetes mellitus Current Visit: No Status: Chronic Plan to address problem: Humalog sliding scale moderate dose with Accu-Chek every 6 hours. Diabetic education. Continue home medication (4) Cocaine use disorder Current Visit: Yes Status: Acute Plan to address problem: Patient counseled regarding cocaine abuse (5) DVT prophylaxis Current Visit: No Status: Acute Plan to address problem: Heparin 5000 units subcu every 8 hours for DVT prophylaxis. Pepcid 20 mg p.o. twice daily for GI prophylaxis. Patient is a full code
[2021-04-05] MEDS: MORPHINE 4 MG/1 ML INJ IV PRN ×3 (06:00→22:41)
[2021-04-05] MEDS: HEPARIN 5,000 UNIT/1 ML VIAL SUB-Q SCH ×3 (06:01→21:06)
[2021-04-05] MEDS: SODIUM CHLORIDE 0.9% 1000 ML 1,000 ML IV SCH ×3 (06:03→18:02)
[2021-04-05 06:08] LABS: Hemoglobin 12.1 gm/dl (11.8-15.2); Mean Corpuscular HGB Conc 31 % (32-34); Mean Corpuscular Volume 94 fl (84-94); Platelet Count 325 K/mm3 (140-440); Red Blood Count 4.17 M/mm3 (3.65-5.03); Red Cell Distribution Width 13.3 % (13.2-15.2)
[2021-04-05 06:25] LABS: BUN/Creatinine Ratio 16; Blood Urea Nitrogen 11 mg/dL (9-20); Calcium 8.6 mg/dL (8.4-10.2); Hemolysis Index 22
[2021-04-05] MEDS: INSULIN LISPRO 100 UNIT/ML SUB-Q SCH ×3 (06:58→17:59)
[2021-04-05 07:06] LABS: Total Cells Counted 100
[2021-04-05 07:08] LABS: Ovalocytes Few; Platelet Estimate Consistent w Auto
[2021-04-05] MEDS: PANTOPRAZOLE 40 MG TAB PO SCH (09:36)
[2021-04-05] MEDS: LISINOPRIL 10 MG TAB PO SCH (09:36)
[2021-04-05] MEDS ORDERED: LURASIDONE 80 MG PO SCH (10:00)
--- NOTE | 2021-04-05 11:13 | Consultation ---
History of Present Illness Consult date: 04/05/21 Requesting physician: TOOITE STANFORD Consult reason: chest pain History of present illness: 60-year-old gentleman with a past medical history of diabetes, hypertension, history of paroxysmal atrial tachycardia, bipolar/schizophrenia, peripheral neuropathy, and substance abuse who presents to [facility] emergency department complaining of chest pain with associated shortness of breath. The patient reports that he is homeless. He also reports that he last used cocaine on Tuesday. Here on the floor he has a host of complaints including chest pain, shortness of breath, and lightheadedness. A twelve-lead EKG reveals a sinus rhythm with no acute ST segment changes and evidence of left atrial enlargement. A urine toxicology screen was positive for cocaine. Past History Past Medical History: diabetes, hypertension, other (Review history of present illness) Past Surgical History: No surgical history Social history: smoking, alcohol abuse, other (Cocaine) Family history: other (Unknown) Medications and Allergies Allergies Allergy/AdvReac Type Severity Reaction Status Date / Time No Known Allergies Allergy Verified 04/04/21 23:31 Home Medications Medication Instructions Recorded Confirmed Last Taken Type Lurasidone (Nf) [Latuda (Nf)] 80 mg PO QDAY 09/23/14 02/19/20 5 Months Ago History ~12/05/15 Insulin Glargine [Lantus] 24 unit SUB-Q QHS #30 day 11/08/14 02/19/20 5 Months Ago Rx ~12/05/15 Insulin NPH/Regular [Novolin 70/30] 10 unit SQ BIDDIAB #30 day 11/08/14 02/19/20 5 Months Ago Rx ~12/05/15 lisinopriL [Lisinopril] 10 mg PO DAILY 11/08/14 02/19/20 5 Months Ago History ~12/05/15 Ibuprofen [Motrin 400 MG tab] 400 mg PO Q8H PRN #20 tablet 05/06/16 02/19/20 Unknown Rx traMADoL [Ultram] 50 mg PO Q6HR PRN #10 tablet 03/24/17 02/19/20 02/19/20 Rx Metformin HCl [metFORMIN ER 500 mg PO BID 02/19/20 02/19/20 Unknown History Osmotic] Ketorolac [Toradol] 10 mg PO Q8H PRN #12 tablet 05/22/20 Unknown Rx Active Meds: Active Medications Acetaminophen (Acetaminophen 325 Mg Tab) 650 mg PO Q6H PRN PRN Reason: Pain, Mild (1-3) Aspirin (Aspirin Ec 325 Mg Tab) 325 mg PO QDAY [facility] Atorvastatin Calcium (Atorvastatin 40 Mg Tab) 40 mg PO QHS [facility] Dextrose (Dextrose 50% In Water (25gm) 50 Ml Syringe) 50 ml IV Q30MIN PRN; Protocol PRN Reason: Hypoglycemia Heparin Sodium (Porcine) (Heparin 5,000 Unit/1 Ml Vial) 5,000 unit SUB-Q Q8HR [facility] Last Admin: 04/05/21 06:01 Dose: 5,000 unit Documented by: Sodium Chloride (Nacl 0.9% 1000 Ml) 1,000 mls @ 100 mls/hr IV DIRECT [facility] Last Admin: 04/05/21 06:03 Dose: 100 mls/hr Documented by: Insulin Human Lispro (Insulin Lispro 100 Unit/Ml) 0 unit SUB-Q Q6HR [facility]; Prot ocol Last Admin: 04/05/21 06:58 Dose: 8 unit Documented by: Ketorolac Tromethamine (Ketorolac 10 Mg Tab) 10 mg PO Q8H PRN PRN Reason: Pain, Moderate (4-6) Stop: 04/10/21 05:00 Lisinopril (Lisinopril 10 Mg Tab) 10 mg PO DAILY [facility] Last Admin: 04/05/21 09:36 Dose: 10 mg Documented by: Miscellaneous Medication (Lurasidone (Nf)) 80 mg PO QDAY [facility] Morphine Sulfate (Morphine 4 Mg/1 Ml Inj) 2 mg IV Q5MIN PRN PRN Reason: Chest Pain unrelieved by NTG Last Admin: 04/05/21 09:41 Dose: 2 mg Documented by: Nitroglycerin (Nitroglycerin 0.4 Mg Tab Subl) 0.4 mg SL Q5M PRN PRN Reason: Chest Pain Pantoprazole Sodium (Pantoprazole 40 Mg Tab) 40 mg PO QDAY [facility] Last Admin: 04/05/21 09:36 Dose: 40 mg Documented by: Sodium Chloride (Sodium Chloride 0.9% 10 Ml Flush Syringe) 10 ml IV PRN PRN PRN Reason: LINE FLUSH Tramadol HCl (Tramadol 50 Mg Tab) 50 mg PO Q6H PRN PRN Reason: Pain, Moderate (4-6) Review of Systems Constitutional: weight loss, no weight gain, no fever, no chills Ears, nose, mouth and throat: deferred Cardiovascular: chest pain, palpitations, lightheadedness, no edema Respiratory: cough Gastrointestinal: no abdominal pain, no nausea, no vomiting Genitourinary Male: no dysuria, no hematuria Rectal: no pain, no incontinence Musculoskeletal: no neck stiffness Integumentary: deferred Neurological: no head injury, no transient paralysis Psychiatric: no anxiety, no memory loss Endocrine: no cold intolerance, no heat intolerance Physical Examination Vital Signs Temp Pulse Resp BP Pulse Ox 98.0 F 111 H 16 147/82 99 04/04/21 23:30 04/04/21 23:30 04/04/21 23:30 04/04/21 23:30 04/04/21 23:30 General appearance: no acute distress HEENT: Positive: PERRL, EOMI Neck: Positive: neck supple Cardiac: Positive: Regular Rhythm, Tachycardia Lungs: Positive: Decreased Breath Sounds Neuro: Positive: Grossly Intact Abdomen: Positive: Unremarkable, Soft Male genitourinary: Positive: deferred Extremities: Present: edema (Trace), warm Results 04/05/21 05:38 04/05/21 05:38 Cardiac Enzymes 04/05/21 Range/Units 00:35 CK-MB (CK-2) 2.5 (0.0-4.0) ng/mL Coagulation 04/05/21 Range/Units 00:35 PT 13.0 (12.2-14.9) Sec. INR 0.88 (0.87-1.13) CBC 04/05/21 04/05/21 Range/Units 00:35 05:38 WBC 10.5 8.4 (4.5-11.0) K/mm3 RBC 4.20 4.17 (3.65-5.03) M/mm3 Hgb 13.0 12.1 (11.8-15.2) gm/dl Hct 38.7 39.0 (35.5-45.6) % Plt Count 326 325 (140-440) K/mm3 Lymph # (Auto) 0.9 L (1.2-5.4) K/mm3 [place] # (Auto) 1.0 H (0.0-0.8) K/mm3 Eos # (Auto) 0.1 (0.0-0.4) K/mm3 Baso # (Auto) 0.1 (0.0-0.1) K/mm3 Comprehensive Metabolic Panel 04/05/21 04/05/21 Range/Units 00:35 05:38 Sodium 135 L 136 L (137-145) mmol/L Potassium 4.0 4.2 (3.6-5.0) mmol/L Chloride 103.3 103.2 (98-107) mmol/L Carbon Dioxide 23 21 L (22-30) mmol/L BUN 13 11 (9-20) mg/dL Creatinine 0.9 0.7 L (0.8-1.3) mg/dL Glucose 208 H 296 H (75-100) mg/dL Calcium 9.1 8.6 (8.4-10.2) mg/dL EKG interpretations - Telemetry EKG Rhythm: Sinus Rhythm Assessment and Plan Echocardiogram 12/28/17: EF 55%, grade 2 diastolic dysfunction, trace mitral regurgitation Chest pain Recent cocaine use History of paroxysmal atrial tachycardia Polysubstance abuse/(tobacco/cocaine/alcohol) Homelessness Diabetes Peripheral neuropathy Bipolar/schizophrenia Constant/continue chest pain Continue to monitor on telemetry Recommend myocardial perfusion scan in a.m.
--- NOTE | 2021-04-05 16:21 | Progress Note ---
Assessment and Plan Assessment and plan: 60-year-old male with history of diabetes and high blood pressure was brought to the hospital because of constant left-sided chest pain 10/10 since yesterday described as dull in nature. Patient admits to shortness of breath and diaphoresis associated with this chest pain. Patient denies nausea or vomiting. Patient denies any recent flights or long car trips. Patient denies history of cough or fever. Patient states he received only one of his Covid vaccinations in September 2020. Patient currently gets his chest pain score of 10/10. Patient states a pack of cigarettes last him 1 week he occasionally uses crack cocaine last used yesterday. Patient states he's never had a stress test or cardiac catheterization In the emergency room initial cardiac enzyme is negative troponin is 0.010, patient urine drug screen is positive for cocaine.'s were going to admit the patient. Patient is placed on chest pain pathway and consult cardiology. (1) atypical persistent left chest pains, congruent cocaine abuse Current Visit: Yes Status: Acute Plan to address problem: Admit the patient to the medical telemetry. Oxygen by nasal cannula 3 L/min. aspirin 325 mg p.o. daily. Lipitor 40 mg p.o. daily. Nitropatch. Morphine 2 mg IV every 4 hours as needed. Serial cardiac enzyme. Echocardiogram. Cardiology evaluation. Troponin x2 normal. Scheduled for stress test in a.m. Hemodynamically stable with sinus tachycardia 90s to 100. Chest x-ray unremarkable. Afebrile. No purulent sputum ordered hemoptysis. (2) history of hypertension, off meds Current Visit: No Status: Chronic Plan to address problem: Hydralazine 10 mg IV every 6 hours as needed. We will monitor the blood pressure closely. We will continue the home medication (3) history of diabetes mellitus, off meds, A1c 8.3 Current Visit: No Status: Chronic Plan to address problem: Humalog sliding scale moderate dose with Accu-Chek every 6 hours. Diabetic education. Continue home medication (4) Cocaine use disorder Current Visit: Yes Status: Acute Plan to address problem: Patient counseled regarding Cocaine abuse (5) homelessness x2 years He is trying to find a place to live in DVT prophylaxis Current Visit: No Status: Acute Plan to address problem: Heparin 5000 units subcu every 8 hours for DVT prophylaxis. Pepcid 20 mg p.o. twice daily for GI prophylaxis. Patient is a full code History Interval history: Patient is homeless since 2 years and sleeps on the ground. Gives history of diabetes and hypertension but off medications since long. Per patient, he is to take Metformin and insulin. Patient reports having constant left chest pain since 2 days. Troponins x2 -. Urine drug screen positive for cocaine. BP stable and heart rate 90-100. Patient also complains of numbness in the hands and swelling in the legs. Cardiology is evaluating. Scheduled for stress test tomorrow. Hospitalist Physical - Constitutional Vitals: Temp Pulse Resp BP Pulse Ox 97.0 F L 97 H 20 110/54 95 04/05/21 15:26 04/05/21 15:26 04/05/21 15:26 04/05/21 15:26 04/05/21 15:26 General appearance: Present: no acute distress, disheveled - EENT Eyes: Present: PERRL, EOM intact ENT: hearing intact - Neck Neck: Present: supple - Respiratory Respiratory effort: normal Respiratory: right: rales (At right base) - Cardiovascular Rhythm: regular - Extremities Extremity abnormal: edema, other (Trace edema in lower extremities) - Abdominal General gastrointestinal: soft, non-tender, normal bowel sounds - Integumentary Integumentary: Absent: rash - Psychiatric Psychiatric: appropriate mood/affect - Neurologic Neurologic: no focal deficits, moves all extremities HEART Score - HEART Score EKG: Non-specific Age: 45-65 Risk factors: > 3 risk factors or hx of atherosclerotic disease Troponin: Troponin T < 0.010 ng/mL (0.00-0.029) 04/05/21 11:10 Troponin: < normal limit Results - Labs CBC & Chem 7: 04/05/21 05:38 04/05/21 05:38 Labs: Laboratory Last Values WBC 8.4 K/mm3 (4.5-11.0) 04/05/21 05:38 RBC 4.17 M/mm3 (3.65-5.03) 04/05/21 05:38 Hgb 12.1 gm/dl (11.8-15.2) 04/05/21 05:38 Hct 39.0 % (35.5-45.6) 04/05/21 05:38 MCV 94 fl (84-94) 04/05/21 05:38 MCH 29 pg (28-32) 04/05/21 05:38 MCHC 31 % (32-34) L 04/05/21 05:38 RDW 13.3 % (13.2-15.2) 04/05/21 05:38 Plt Count 325 K/mm3 (140-440) 04/05/21 05:38 Lymph % (Auto) 8.7 % (13.4-35.0) L 04/05/21 00:35 Motley % (Auto) 9.7 % (0.0-7.3) H 04/05/21 00:35 Eos % (Auto) 0.8 % (0.0-4.3) 04/05/21 00:35 Baso % (Auto) 0.5 % (0.0-1.8) 04/05/21 00:35 Lymph # (Auto) 0.9 K/mm3 (1.2-5.4) L 04/05/21 00:35 Motley # (Auto) 1.0 K/mm3 (0.0-0.8) H 04/05/21 00:35 Eos # (Auto) 0.1 K/mm3 (0.0-0.4) 04/05/21 00:35 Baso # (Auto) 0.1 K/mm3 (0.0-0.1) 04/05/21 00:35 Add Manual Diff Complete 04/05/21 05:38 Total Counted 100 04/05/21 05:38 Seg Neutrophils % 80.3 % (40.0-70.0) H 04/05/21 00:35 Seg Neuts % (Manual) 72.0 % (40.0-70.0) H 04/05/21 05:38 Lymphocytes % (Manual) 17.0 % (13.4-35.0) 04/05/21 05:38 Monocytes % (Manual) 9.0 % (0.0-7.3) H 04/05/21 05:38 Eosinophils % (Manual) 2.0 % (0.0-4.3) 04/05/21 05:38 Nucleated RBC % Not Reportable 04/05/21 05:38 Seg Neutrophils # 8.5 K/mm3 (1.8-7.7) H 04/05/21 00:35 Seg Neutrophils # Man 6.0 K/mm3 (1.8-7.7) 04/05/21 05:38 Band Neutrophils # 0.0 K/mm3 04/05/21 05:38 Lymphocytes # (Manual) 1.4 K/mm3 (1.2-5.4) 04/05/21 05:38 Abs React Lymphs (Man) 0.0 K/mm3 04/05/21 05:38 Monocytes # (Manual) 0.8 K/mm3 (0.0-0.8) 04/05/21 05:38 Eosinophils # (Manual) 0.2 K/mm3 (0.0-0.4) 04/05/21 05:38 Basophils # (Manual) 0.0 K/mm3 (0.0-0.1) 04/05/21 05:38 Metamyelocytes # 0.0 K/mm3 04/05/21 05:38 Myelocytes # 0.0 K/mm3 04/05/21 05:38 Promyelocytes # 0.0 K/mm3 04/05/21 05:38 Blast Cells # 0.0 K/mm3 04/05/21 05:38 WBC Morphology Not Reportable 04/05/21 05:38 Hypersegmented Neuts Not Reportable 04/05/21 05:38 Hyposegmented Neuts Not Reportable 04/05/21 05:38 Hypogranular Neuts Not Reportable 04/05/21 05:38 Smudge Cells Not Reportable 04/05/21 05:38 Toxic Granulation Not Reportable 04/05/21 05:38 Toxic Vacuolation Not Reportable 04/05/21 05:38 Dohle Bodies Not Reportable 04/05/21 05:38 Pelger-Huet Anomaly Not Reportable 04/05/21 05:38 Allie Rods Not Reportable 04/05/21 05:38 Platelet Estimate Consistent w auto 04/05/21 05:38 Clumped Platelets Not Reportable 04/05/21 05:38 Plt Clumps, EDTA Not Reportable 04/05/21 05:38 Large Platelets Not Reportable 04/05/21 05:38 Giant Platelets Not Reportable 04/05/21 05:38 Platelet Satelliting Not Reportable 04/05/21 05:38 Plt Morphology Comment Not Reportable 04/05/21 05:38 RBC Morphology Not Reportable 04/05/21 05:38 Dimorphic RBCs Not Reportable 04/05/21 05:38 Polychromasia Not Reportable 04/05/21 05:38 Hypochromasia Not Reportable 04/05/21 05:38 Poikilocytosis Not Reportable 04/05/21 05:38 Anisocytosis Not Reportable 04/05/21 05:38 Microcytosis Not Reportable 04/05/21 05:38 Macrocytosis Not Reportable 04/05/21 05:38 Spherocytes Not Reportable 04/05/21 05:38 Pappenheimer Bodies Not Reportable 04/05/21 05:38 Sickle Cells Not Reportable 04/05/21 05:38 Target Cells Not Reportable 04/05/21 05:38 Tear Drop Cells Not Reportable 04/05/21 05:38 Ovalocytes Few 04/05/21 05:38 Helmet Cells Not Reportable 04/05/21 05:38 Jensen-Shafer Bodies Not Reportable 04/05/21 05:38 Donnellson Rings Not Reportable 04/05/21 05:38 [place] Cells Not Reportable 04/05/21 05:38 Bite Cells Not Reportable 04/05/21 05:38 Crenated Cell Not Reportable 04/05/21 05:38 Elliptocytes Not Reportable 04/05/21 05:38 Acanthocytes (Spur) Not Reportable 04/05/21 05:38 Rouleaux Not Reportable 04/05/21 05:38 Hemoglobin C Crystals Not Reportable 04/05/21 05:38 Schistocytes Not Reportable 04/05/21 05:38 Malaria parasites Not Reportable 04/05/21 05:38 Roberto Bodies Not Reportable 04/05/21 05:38 Hem Pathologist Commnt No 04/05/21 05:38 PT 13.0 Sec. (12.2-14.9) 04/05/21 00:35 INR 0.88 (0.87-1.13) 04/05/21 00:35 Sodium 136 mmol/L (137-145) L 04/05/21 05:38 Potassium 4.2 mmol/L (3.6-5.0) 04/05/21 05:38 Chloride 103.2 mmol/L (98-107) 04/05/21 05:38 Carbon Dioxide 21 mmol/L (22-30) L 04/05/21 05:38 Anion Gap 16 mmol/L 04/05/21 05:38 BUN 11 mg/dL (9-20) 04/05/21 05:38 Creatinine 0.7 mg/dL (0.8-1.3) L 04/05/21 05:38 Estimated GFR > 60 ml/min 04/05/21 05:38 BUN/Creatinine Ratio 16 % 04/05/21 05:38 Glucose 296 mg/dL (75-100) H 04/05/21 05:38 POC Glucose 206 mg/dL (70-105) H 04/05/21 12:01 Hemoglobin A1c 8.3 % (4-6) H 04/05/21 11:10 Calcium 8.6 mg/dL (8.4-10.2) 04/05/21 05:38 Magnesium 2.10 mg/dL (1.7-2.3) 04/05/21 00:35 Total Creatine Kinase 160 units/L (55-170) 04/05/21 00:35 CK-MB (CK-2) 2.5 ng/mL (0.0-4.0) 04/05/21 00:35 CK-MB (CK-2) Rel Index 1.5 (0-4) 04/05/21 00:35 Troponin T < 0.010 ng/mL (0.00-0.029) 04/05/21 11:10 NT-Pro-B Natriuret Pep 113.8 pg/mL (0-900) 04/05/21 00:35 Urine Opiates Screen Negative 04/05/21 04:03 Urine Methadone Screen Negative 04/05/21 04:03 Ur Barbiturates Screen Negative 04/05/21 04:03 Ur Phencyclidine Scrn Negative 04/05/21 04:03 Ur Amphetamines Screen Negative 04/05/21 04:03 U Benzodiazepines Scrn Negative 04/05/21 04:03 Urine Cocaine Screen Positive 04/05/21 04:03 U Marijuana (THC) Screen Negative 04/05/21 04:03 Drugs of Abuse Note Disclamer 04/05/21 04:03 Plasma/Serum Alcohol < 0.01 % (0-0.07) 04/05/21 00:35 Barrera/IV: Voiding Method Urinal Active Medications - Current Medications Current Medications: Generic Name Dose Route Start Last Admin Trade Name Freq PRN Reason Stop Dose Admin Acetaminophen 650 mg 04/05/21 04:58 Acetaminophen 325 Mg Tab PO Q6H PRN Pain, Mild (1-3) Aspirin 325 mg 04/06/21 10:00 Aspirin Ec 325 Mg Tab PO QDAY [facility] Atorvastatin Calcium 40 mg 04/05/21 22:00 Atorvastatin 40 Mg Tab PO QHS MOIZ Dextrose 50 ml 04/05/21 04:58 Dextrose 50% In Water (25gm) 50 Ml Syringe IV Q30MIN PRN Hypoglycemia Protocol Heparin Sodium (Porcine) 5,000 unit 04/05/21 06:00 04/05/21 13:05 Heparin 5,000 Unit/1 Ml Vial SUB-Q 5,000 unit Q8HR MOIZ Administration Sodium Chloride 1,000 mls @ 100 mls/hr 04/05/21 05:00 04/05/21 13:06 Nacl 0.9% 1000 Ml IV 100 mls/hr DIRECT MOIZ Administration Insulin Human Lispro 0 unit 04/05/21 06:00 04/05/21 13:05 Insulin Lispro 100 Unit/Ml SUB-Q 3 unit Q6HR MOIZ Administration Protocol Ketorolac Tromethamine 10 mg 04/05/21 05:01 Ketorolac 10 Mg Tab PO 04/10/21 05:00 Q8H PRN Pain, Moderate (4-6) Lisinopril 10 mg 04/05/21 10:00 04/05/21 09:36 Lisinopril 10 Mg Tab PO 10 mg DAILY MOIZ Administration Miscellaneous Medication 80 mg 04/05/21 10:00 Lurasidone (Nf) PO QDAY [facility] Morphine Sulfate 2 mg 04/05/21 04:58 04/05/21 09:41 Morphine 4 Mg/1 Ml Inj IV 2 mg Q5MIN PRN Administration Chest Pain unrelieved by NTG Nitroglycerin 0.4 mg 04/05/21 04:58 Nitroglycerin 0.4 Mg Tab Subl SL Q5M PRN Chest Pain Pantoprazole Sodium 40 mg 04/05/21 10:00 04/05/21 09:36 Pantoprazole 40 Mg Tab PO 40 mg QDAY MOIZ Administration Sodium Chloride 10 ml 04/05/21 04:58 Sodium Chloride 0.9% 10 Ml Flush Syringe IV PRN PRN LINE FLUSH Tramadol HCl 50 mg 04/05/21 04:58 04/05/21 13:09 Tramadol 50 Mg Tab PO 50 mg Q6H PRN Administration Pain, Moderate (4-6) Nutrition/Malnutrition Assess - Dietary Evaluation Nutrition/Malnutrition Findings: Nutrition Notes Start: 04/05/21 11:38 Freq: Status: Active Protocol: Document 04/05/21 11:38 (Rec: 04/05/21 11:40 [id number]) Nutrition Notes Need for Assessment generated from: MD Order Initial or Follow up Brief Note Current Diagnosis Coronary Artery Disease, Diabetes,Hypertension Other Pertinent Diagnosis substance abuse disorder Current Diet Cardiac, consistent CHO Subjective/Other Information MD order for diet education. Educated pt about lower carb choices and low sodium foods. Pt agreed to try to eat less fried foods and more vegetables. Nutrition Intervention Anticipated Discharge Needs: Cardiac, consistent CHO Revisit per MD consult or patient Sign Off request:
[2021-04-06] MEDS: HEPARIN 5,000 UNIT/1 ML VIAL SUB-Q SCH ×2 (06:29→13:09)
[2021-04-06] MEDS: SODIUM CHLORIDE 0.9% 1000 ML 1,000 ML IV SCH (06:33)
[2021-04-06] MEDS: INSULIN LISPRO 100 UNIT/ML SUB-Q SCH ×3 (06:40→12:20)
[2021-04-06] MEDS: MORPHINE 4 MG/1 ML INJ IV PRN ×2 (07:42→13:08)
--- NOTE | 2021-04-06 08:54 | Electrocardiograph Report ---
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
--- NOTE | 2021-04-06 08:56 | Electrocardiograph Report ---
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
--- NOTE | 2021-04-06 08:57 | Electrocardiograph Report ---
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
[2021-04-06] MEDS ORDERED: ASPIRIN EC 325 MG TAB PO SCH (10:00)
[2021-04-06] MEDS ORDERED: REGADENOSON 0.4 MG/5 ML INJ IV ONE ×2 (10:16)
[2021-04-06] MEDS: LISINOPRIL 10 MG TAB PO SCH (12:20)
[2021-04-06] MEDS: PANTOPRAZOLE 40 MG TAB PO SCH (12:20)
--- NOTE | 2021-04-06 14:29 | Progress Note ---
Assessment and Plan Chest pain Recent cocaine use History of paroxysmal atrial tachycardia Polysubstance abuse/(tobacco/cocaine/alcohol) Homelessness Diabetes Peripheral neuropathy Bipolar/schizophrenia Echo 04/05/2021-EF 50 to 55%. Mild diastolic dysfunction impaired relaxation pattern. Mild LVH. No pericardial effusion Lexiscan stress test 04/06/2021-stress is negative for signs of ischemia. EF 41% Echocardiogram 12/28/17: EF 55%, grade 2 diastolic dysfunction, trace mitral regurgitation Plan: No BBs due to cocaine use Cardiac status is stable Patient seen in conjunction with Dr. Dodson who agrees with this plan of care. - Patient Problems (1) Chest pain Current Visit: Yes Status: Acute (2) Cocaine use disorder Current Visit: Yes Status: Acute (3) MDD (major depressive disorder) Current Visit: No Status: Acute (4) Diabetes mellitus Current Visit: No Status: Chronic (5) Hypertension Current Visit: No Status: Chronic Subjective Date of service: 04/06/21 Principal diagnosis: chest pain Interval history: Patient for stress test this a.m. sinus 84 monitor no events Objective Vital Signs Temp Pulse Resp BP BP Pulse Ox 04/06/21 12:00 98.4 F 86 20 139/79 04/06/21 10:26 139/82 04/06/21 10:25 130/78 04/06/21 10:23 142/76 04/06/21 10:22 137/78 04/06/21 10:21 135/81 04/06/21 10:12 133/82 04/06/21 10:05 136/80 04/06/21 08:15 98.1 F 79 20 144/70 04/06/21 07:34 98 04/06/21 05:10 98.4 F 82 20 141/88 97 04/05/21 23:46 98.2 F 88 16 108/58 99 04/05/21 22:33 98.7 F 92 H 16 110/48 95 04/05/21 22:18 92 H 109/66 04/05/21 20:02 98.7 F 97 H 20 117/62 94 04/05/21 20:00 98 04/05/21 16:00 97 H 04/05/21 15:26 97.0 F L 97 H 20 110/54 95 - Physical Examination General: No Apparent Distress HEENT: Positive: PERRL, EOMI Neck: Positive: neck supple Cardiac: Positive: Reg Rate and Rhythm Lungs: Positive: Normal Breath Sounds Neuro: Positive: Grossly Intact Abdomen: Positive: Unremarkable, Soft Extremities: Present: upper extr. pulses, edema (Trace), warm - Telemetry EKG Rhythm: Sinus Rhythm - EKG Sinus rhythms and dysrhythmias: sinus rhythm
[2021-04-06] MEDS ORDERED: INSULIN LISPRO 100 UNIT/ML SUB-Q SCH (16:30)
--- NOTE | 2021-04-06 17:20 | Discharge Summary ---
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 Hospitalization Condition: Stable Disposition: HOME / SELF CARE / HOMELESS Exam - Constitutional Vitals: Temp Pulse Resp BP Pulse Ox 98.4 F 86 20 139/79 98 04/06/21 12:00 04/06/21 12:00 04/06/21 12:00 04/06/21 12:00 04/06/21 07:34 General appearance: Present: no acute distress - EENT Eyes: Present: PERRL ENT: clear oral mucosa - Neck Neck: Present: supple - Respiratory Respiratory effort: normal Respiratory: bilateral: diminished - Cardiovascular Rhythm: regular - Extremities Extremities: No edema - Abdominal General gastrointestinal: Present: soft, non-tender - Integumentary Integumentary: Absent: rash - Neurologic Neurologic: no focal deficits, moves all extremities Plan Activity: advance as tolerated Diet: low fat, low salt, diabetic (1800 hyacinth) Additional Instructions: Do not use cocaine or illicit drugs as they will harm your health and can cause other attack. Do not use tobacco products. See a family doctor in 1 week for follow-up Follow up with: PRIMARY CARE, [Primary Care Provider] - 3-5 Days Prescriptions: AtorvaSTATin [Lipitor] 20 mg PO QHS #30 tab lisinopriL [Lisinopril] 10 mg PO DAILY #30 tablet Metformin HCl [metFORMIN ER Osmotic] 500 mg PO BID #60 Ibuprofen [Motrin 400 MG tab] 400 mg PO Q8H PRN #20 tablet PRN Reason: Pain Aspirin [[place] Aspirin EC] 81 mg PO DAILY #100 tablet. traMADoL [Ultram 50 MG tab] 50 mg PO Q6HR PRN #20 tablet PRN Reason: Pain
[2021-04-06 17:35] VITALS: BP 131/63
== END 2021-04-06 17:59 | disposition home or self-care (01) | DRG 313 ==
LOC: ED 23:21 → 4A 04-05 03:45
PROVIDERS: ADMIT Hospitalist; ATTEND Internal Medicine
DX: R07.89 Other chest pain (principal); F14.10 Cocaine abuse, uncomplicated; F31.9 Bipolar disorder, unspecified; F20.9 Schizophrenia, unspecified; F17.200 Nicotine dependence, unspecified, uncomplicated; Z79.4 Long term (current) use of insulin; Z79.899 Other long term (current) drug therapy; E11.42 Type 2 diabetes mellitus with diabetic polyneuropathy; Z59.00 Homelessness unspecified
CPT/HCPCS: 36415; 71045; 78452; 80048; 80307; 80320; 82550; 82553; 82962; 83036; 83735; 83880; 84484; 85007; 85025; 85610; 93005; 93017; 93306; G0378; Q0162; Q9967; A9502; G0480; J1644; J1815; J2270; J2405; J2785; J3010; J7030

== ENCOUNTER 2021-09-14 12:48 | Emergency (ER) | payer SELFPAY ==
[2021-09-14] MEDS ORDERED: ALBUTEROL 2.5 MG/3 ML NEBU IH ONE (13:40)
[2021-09-14] MEDS ORDERED: dexAMETHasone 4 MG/ML VIAL IM ONE (13:40)
--- NOTE | 2021-09-14 15:14 | XRay Report ---
CHEST 1 VIEW 09/14/2021 2:41 PM INDICATION / CLINICAL INFORMATION: Dyspnea. COMPARISON: 04/04/2021 FINDINGS: SUPPORT DEVICES: None. HEART / MEDIASTINUM: No significant abnormality. LUNGS / PLEURA: Mild pulmonary vascular indistinctness. No pneumothorax. ADDITIONAL FINDINGS: No significant additional findings. IMPRESSION: 1. Mild pulmonary vascular indistinctness which may be secondary to pulmonary edema. Signer Name: Carlos Goff DO Signed: 09/14/2021 3:09 PM Workstation Name: [employer]
[2021-09-14 16:41] LABS: Hematocrit 47.5 % (35.5-45.6); Hemoglobin 15.5 gm/dl (11.8-15.2); Mean Corpuscular HGB Conc 33 % (32-34); Mean Corpuscular Volume 94 fl (84-94); Platelet Count 258 K/mm3 (140-440); Red Blood Count 5.06 M/mm3 (3.65-5.03); Red Cell Distribution Width 13.6 % (13.2-15.2)
[2021-09-14 16:46] LABS: Creatine Kinase MB 1.9 ng/mL (0.0-4.0)
[2021-09-14 16:50] LABS: Alanine Aminotransferase 11 units/L (7-56); Albumin 3.9 g/dL (3.9-5); BUN/Creatinine Ratio 11; Blood Urea Nitrogen 8 mg/dL (9-20); Calcium 9.5 mg/dL (8.4-10.2); Hemolysis Index 26
--- NOTE | 2021-09-14 17:00 | Emergency Department Report ---
- General Chief Complaint: Upper Respiratory Infection Stated Complaint: COVID LIKE SYMTOMS Time Seen by Provider: 09/14/21 13:38 Source: EMS Mode of arrival: Stretcher Limitations: No Limitations - History of Present Illness MD Complaint: cough, nasal congestion -: Gradual, days(s) Improves With: nothing Worsens With: nothing Associated Symptoms: cough. denies: denies other symptoms, fever, chills, myalgias Treatments Prior to Arrival: none - Related Data Home Medications Medication Instructions Recorded Confirmed Last Taken Lurasidone (Nf) [Latuda (Nf)] 80 mg PO QDAY 09/23/14 04/06/21 5 Months Ago ~12/05/15 lisinopriL [Lisinopril] 10 mg PO DAILY 11/08/14 04/06/21 5 Months Ago ~12/05/15 Previous Rx's Medication Instructions Recorded Last Taken Type Insulin NPH/Regular [NovoLIN 70/30] 10 unit SQ BIDDIAB #30 day 11/08/14 5 Months Ago Rx ~12/05/15 Aspirin [[place] Aspirin EC] 81 mg PO DAILY #100 tablet. 04/06/21 Unknown Rx AtorvaSTATin [Lipitor] 20 mg PO QHS #30 tab 04/06/21 Unknown Rx Ibuprofen [Motrin 400 MG tab] 400 mg PO Q8H PRN #20 tablet 04/06/21 Unknown Rx Metformin HCl [metFORMIN ER 500 mg PO BID #60 04/06/21 Unknown Rx Osmotic] lisinopriL [Lisinopril] 10 mg PO DAILY #30 tablet 04/06/21 Unknown Rx traMADoL [Ultram 50 MG tab] 50 mg PO Q6HR PRN #20 tablet 04/06/21 Unknown Rx Azithromycin [Zithromax Z-SAUL] 250 mg PO DAILY #6 09/14/21 Unknown Rx Brompheniramine/Pseudoephed/Dm 118 ml PO QID #118 09/14/21 Unknown Rx [Bromfed Dm Cough Syrup] Allergies Allergy/AdvReac Type Severity Reaction Status Date / Time No Known Allergies Allergy Verified 09/14/21 14:37 ED Review of Systems ROS: Stated complaint: COVID LIKE SYMTOMS Other details as noted in HPI Constitutional: denies: chills, fever Eyes: denies: eye pain, eye discharge, vision change ENT: denies: ear pain, throat pain Respiratory: denies: cough, shortness of breath, wheezing Cardiovascular: denies: chest pain, palpitations Endocrine: no symptoms reported Gastrointestinal: denies: abdominal pain, nausea, diarrhea Genitourinary: denies: urgency, dysuria Musculoskeletal: denies: back pain, joint swelling, arthralgia Skin: denies: rash, lesions Neurological: denies: headache, weakness, paresthesias Psychiatric: denies: anxiety, depression Hematological/Lymphatic: denies: easy bleeding, easy bruising ED Past Medical Hx - Past Medical History Hx Hypertension: Yes Hx Congestive Heart Failure: No Hx Diabetes: Yes (noncomplaint w/ meds) Hx Psychiatric Treatment: Yes (depression, bipolar/schizophrenia) Hx Asthma: No Hx COPD: No Additional medical history: Chronic Knee Pain - Surgical History Hx Appendectomy: Yes Additional Surgical History: exp lap as a child - Social History Smoking Status: Unknown if ever smoked - Medications Home Medications: Home Medications Medication Instructions Recorded Confirmed Last Taken Type Lurasidone (Nf) [Latuda (Nf)] 80 mg PO QDAY 09/23/14 04/06/21 5 Months Ago History ~12/05/15 Insulin NPH/Regular [NovoLIN 70/30] 10 unit SQ BIDDIAB #30 day 11/08/14 04/06/21 5 Months Ago Rx ~12/05/15 lisinopriL [Lisinopril] 10 mg PO DAILY 11/08/14 04/06/21 5 Months Ago History ~12/05/15 Aspirin [[place] Aspirin EC] 81 mg PO DAILY #100 tablet. 04/06/21 Unknown Rx AtorvaSTATin [Lipitor] 20 mg PO QHS #30 tab 04/06/21 Unknown Rx Ibuprofen [Motrin 400 MG tab] 400 mg PO Q8H PRN #20 tablet 04/06/21 Unknown Rx Metformin HCl [metFORMIN ER 500 mg PO BID #60 04/06/21 Unknown Rx Osmotic] lisinopriL [Lisinopril] 10 mg PO DAILY #30 tablet 04/06/21 Unknown Rx traMADoL [Ultram 50 MG tab] 50 mg PO Q6HR PRN #20 tablet 04/06/21 Unknown Rx Azithromycin [Zithromax Z-SAUL] 250 mg PO DAILY #6 09/14/21 Unknown Rx Brompheniramine/Pseudoephed/Dm 118 ml PO QID #118 09/14/21 Unknown Rx [Bromfed Dm Cough Syrup] ED Physical Exam - General Limitations: No Limitations General appearance: alert, in no apparent distress - Head Head exam: Present: atraumatic, normocephalic - Eye Eye exam: Present: normal appearance - ENT ENT exam: Present: mucous membranes moist - Neck Neck exam: Present: normal inspection - Respiratory Respiratory exam: Present: normal lung sounds bilaterally. Absent: respiratory distress - Cardiovascular Cardiovascular Exam: Present: regular rate, normal rhythm. Absent: systolic murmur, diastolic murmur, rubs, gallop - GI/Abdominal GI/Abdominal exam: Present: soft, normal bowel sounds - Rectal Rectal exam: Present: deferred - Extremities Exam Extremities exam: Present: normal inspection - Back Exam Back exam: Present: normal inspection - Neurological Exam Neurological exam: Present: alert, oriented X3 - Psychiatric Psychiatric exam: Present: normal affect, normal mood - Skin Skin exam: Present: warm, dry, intact, normal color. Absent: rash ED Course Vital Signs 09/14/21 09/14/21 12:57 15:40 Temperature 98.7 F Pulse Rate 105 H Pulse Rate [ 96 H Anterior Bilateral Throughout] Respiratory 16 Rate Respiratory 16 Rate [Anterior Bilateral Throughout] Blood Pressure 147/94 [Left] O2 Sat by Pulse 98 Oximetry ED Medical Decision Making - Lab Data Result diagrams: 09/14/21 16:17 09/14/21 16:17 - Radiology Data Radiology results: report reviewed, image reviewed - Medical Decision Making afebrile , vss no distress , o2 sat 96 on RA , rt given x ray shwoed no pneumonia, abx given Critical care attestation.: If time is entered above; I have spent that time in minutes in the direct care of this critically ill patient, excluding procedure time. ED Disposition Clinical Impression: URI (upper respiratory infection), Cough Disposition: 01 HOME / SELF CARE / HOMELESS Is pt being admited?: No Does the pt Need Aspirin: No Condition: Stable Instructions: Upper Respiratory Infection, Adult, [id number]
[2021-09-14 19:57] VITALS: BP 132/72
== END 2021-09-14 19:57 | disposition home or self-care (01) ==
LOC: ED 12:48
DX: J06.9 Acute upper respiratory infection, unspecified (principal); R05.9 Cough, unspecified; I10 Essential (primary) hypertension; E11.9 Type 2 diabetes mellitus without complications; Z90.89 Acquired absence of other organs
CPT/HCPCS: 36415; 71045; 80053; 82550; 82553; 83690; 83880; 84484; 85025; 94640; 96372; 99284; J1100; 94644

== ENCOUNTER 2021-10-03 05:10 | Emergency (ER) | payer BC ==
[2021-10-03 05:22] VITALS: BP 148/94
[2021-10-03 06:53] LABS: Bilirubin,Urine NEG (Negative); Blood,Urine NEG (Negative); Color,Urine Yellow (Yellow); Mucus,Urine FEW /HPF; Urobilinogen,Urine < 2.0 mg/dL (<2.0)
[2021-10-03 07:02] LABS: Protein,Urine >500 mg/dL (Negative)
== END 2021-10-04 13:55 | disposition left against medical advice (07) ==
LOC: ED 05:10
DX: Z00.00 Encounter for general adult medical examination without abnormal findings (principal); Z53.21 Procedure and treatment not carried out due to patient leaving prior to being seen by health care provider
CPT/HCPCS: 81001